=== PATIENT | male | born 1985 | race Caucasian/White ===

== ENCOUNTER → 2022-05-02 | Outpatient (CLI) | payer BC ==
--- NOTE | 2022-05-02 17:41 | US ---
EXAMINATION TYPE: US scrotum with doppler. Grayscale and color Doppler Duplex imaging performed of bill abdullahi scrotum. DATE OF EXAM: 05/02/2022 COMPARISON: NONE CLINICAL HISTORY: Bilateral scrotal tenderness, left greater than right. History of vasectomy 3 year s prior. EXAM MEASUREMENTS: TESTICLES: Right Testicle: 4.4 x 2.5 x 3.5 cm Left Testicle: 3.9 x 2.2 x 3.5 cm EPIDIDYMIS HEAD: Right Epididymis: 1.2 cm Left Epididymis: 1.1 cm Doppler performed to assess for testicular vascularity; good bilateral color flow and waveforms are s een. There is no evidence of testicular torsion. Presence of hydroceles: No Presence of varicoceles: Left prominent vessels without distinct dilation upon valsalva in area of p atient's tenderness. IMPRESSION: No testicular torsion or mass. No free fluid. There is evidence for some mild left-sided varicocele.
== END | disposition home or self-care (01) ==
LOC: RADUSWWP 16:59
PROVIDERS: ATTEND Family Medicine
DX: I86.1 Scrotal varices (principal); N50.812 Left testicular pain
CPT/HCPCS: 76870; 93975

== ENCOUNTER → 2022-06-01 | Outpatient (CLI) | payer BC ==
--- NOTE | 2022-06-01 14:06 | US ---
EXAMINATION TYPE: US venous doppler duplex UE RT DATE OF EXAM: 06/01/2022 COMPARISON: NONE CLINICAL HISTORY: I80.9. right arm redness pain and bruising had blood drawn yesterday. SIDE PERFORMED: Right Right Arm: Negative for DVT fluid visualized at elbow area of bruising. Grayscale, color doppler, spe ctral doppler imaging performed of the deep veins of the upper extremities. There is normal flow, co mpressibility and vascular waveforms. IMPRESSION: 1. No evidence of right upper extremity deep vein thrombosis. 2. There is a fluid collection correlating with area of bruising. Findings could represent blood pro ducts and/or seroma.
== END | disposition home or self-care (01) ==
LOC: RADUSWWP 12:47
PROVIDERS: ATTEND Family Medicine
DX: I80.8 Phlebitis and thrombophlebitis of other sites (principal)